=== PATIENT | female | born 2005 ===

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

== ENCOUNTER 2025-05-19 06:49 | Inpatient (IN) | payer OTHER ==
[~2025-05-19] VITALS: Ht 167.6 cm; Wt 89.5 kg
[2025-05-19] VITALS (26 sets, daily range): BP systolic 82–161; BP diastolic 43–108
[2025-05-19] MEDS ORDERED: FentaNYL Citrate 50 MCG/ML 2 ML Injection IV PRN (07:40)
[2025-05-19] MEDS ORDERED: Ondansetron HCl 2 MG / ML 2ML Vial IV PRN ×2 (07:40→17:30)
[2025-05-19] MEDS ORDERED: FentaNYL 2mcg/ml-Bup 0.1% Epd 250 ML EPI PRN (07:40)
[2025-05-19] MEDS ORDERED: OXYTOCIN/RINGER'S LACTATE 500 ML IV SCH (07:40)
[2025-05-19] MEDS ORDERED: Oxytocin 10 Unit / ML Vial IM PRN (07:40)
[2025-05-19] MEDS ORDERED: ePHEDrine Sulfate 50 MG/ML 1ML Injection XX PRN (07:40)
[2025-05-19] MEDS ORDERED: OXYTOCIN/RINGER'S LACTATE 500 ML IV PRN (07:40)
[2025-05-19] MEDS ORDERED: Methylergonovine Maleate 0.2MG / ML 1ML Amp IM PRN (07:40)
[2025-05-19] MEDS ORDERED: Tranexamic Acid 100 ML IV SCH (07:40)
[2025-05-19] MEDS ORDERED: Carboprost Tromethamine 250 MCG/ML 1ML Amp IM PRN (07:40)
[2025-05-19] MEDS ORDERED: PRENATAL TABLE1 EAC2 PO (07:58)
[2025-05-19 08:11] LABS: BASOPHILS ABSOLUTE AUTO 0.04 K/mm3 (0.00-0.23); BASOPHILS PERCENT AUTO 0 % (0-2); EOSINOPHILS ABSOLUTE AUTO 0.13 K/mm3 (0.00-0.68); EOSINOPHILS PERCENT AUTO 1 % (0-6); Hematocrit 25.7 % (33.0-51.0); Hemoglobin 7.9 g/dL (11.5-16.0); IMMATURE GRAN ABSOLUTE AUTO 0.17 K/mm3 (0.00-0.10); IMMATURE GRAN PERCENT AUTO 1 % (0-1); LYMPHOCYTES ABSOLUTE AUTO 2.09 K/mm3 (0.84-5.20); LYMPHOCYTES PERCENT AUTO 17 % (21-46); MONOCYTES ABSOLUTE AUTO 0.99 K/mm3 (0.16-1.47); MONOCYTES PERCENT AUTO 8 % (4-13); Mean Corpuscular HGB Conc 30.7 g/dL (31.5-36.5); Mean Corpuscular Volume 75 fL (80-100); NEUTROPHILS ABSOLUTE AUTO 8.79 K/mm3 (1.96-9.15); NEUTROPHILS PERCENT AUTO 72 % (41-73); NRBC ABSOLUTE 0.00 K/mm3 (0.00-0.02); NRBC Auto 0.0 /100 WBC (0.0-0.2); Platelet Count 211 K/mm3 (150-400); RDW Coefficient Variation 17.2 % (11.7-14.2); RDW Standard Deviation 46.2 fL (35.1-46.3)
[2025-05-19] MEDS ORDERED: Methylergonovine Maleate 0.2MG / ML 1ML Amp IM ONE (13:03)
[2025-05-19] MEDS ORDERED: Naloxone HCl 0.4MG / ML 1ML Vial IV PRN (17:30)
[2025-05-19] MEDS ORDERED: Metoclopramide HCl 5MG / ML 2ML Vial IV PRN (17:30)
[2025-05-19] MEDS ORDERED: DiphenhydrAMINE HCl 50 MG/ML 1ML Vial IV PRN (17:30)
[2025-05-19] MEDS ORDERED: ePHEDrine Sulfate 50 MG/ML 1ML Injection IV PRN (17:35)
[2025-05-20] VITALS (22 sets, daily range): BP systolic 93–135; BP diastolic 52–97
[2025-05-20] MEDS ORDERED: Benzocaine Topical Anesthetic Spray 60GM TOP PRN (06:30)
[2025-05-20] MEDS ORDERED: Witch Hazel/Glycerin PADS TOP PRN (06:30)
[2025-05-20] MEDS ORDERED: Methylergonovine Maleate 0.2MG / ML 1ML Amp IM PRN (06:30)
[2025-05-20] MEDS ORDERED: OXYTOCIN/RINGER'S LACTATE 500 ML IV SCH (06:30)
[2025-05-20] MEDS ORDERED: Ketorolac Tromethamine 30mg Vial IV SCH (08:01)
[2025-05-20] MEDS ORDERED: Prenatal Vit/FE Fumarate/FA 1 Tab PO SCH (09:00)
[2025-05-21] VITALS (17 sets, daily range): BP systolic 105–132; BP diastolic 56–78
[2025-05-21 06:05] LABS: BASOPHILS ABSOLUTE AUTO 0.04 K/mm3 (0.00-0.23); BASOPHILS PERCENT AUTO 0 % (0-2); EOSINOPHILS ABSOLUTE AUTO 0.16 K/mm3 (0.00-0.68); EOSINOPHILS PERCENT AUTO 1 % (0-6); Hematocrit 20.7 % (33.0-51.0); Hemoglobin 6.4 g/dL (11.5-16.0); IMMATURE GRAN ABSOLUTE AUTO 0.31 K/mm3 (0.00-0.10); IMMATURE GRAN PERCENT AUTO 2 % (0-1); LYMPHOCYTES ABSOLUTE AUTO 2.84 K/mm3 (0.84-5.20); LYMPHOCYTES PERCENT AUTO 16 % (21-46); MONOCYTES ABSOLUTE AUTO 1.40 K/mm3 (0.16-1.47); MONOCYTES PERCENT AUTO 8 % (4-13); Mean Corpuscular HGB Conc 30.9 g/dL (31.5-36.5); Mean Corpuscular Volume 76 fL (80-100); NEUTROPHILS ABSOLUTE AUTO 12.73 K/mm3 (1.96-9.15); NEUTROPHILS PERCENT AUTO 73 % (41-73); NRBC ABSOLUTE 0.02 K/mm3 (0.00-0.02); NRBC Auto 0.1 /100 WBC (0.0-0.2); Platelet Count 208 K/mm3 (150-400); RDW Coefficient Variation 17.4 % (11.7-14.2); RDW Standard Deviation 46.5 fL (35.1-46.3)
--- NOTE | 2025-05-21 06:39 | NUR ---
CALL TO DR MCCARTHY @ 5321 TO REPORT H&H, PT HAS BEEN ACTIVE & AMBULATING IN ROOM, ASYMPTOMATIC, V/S, PREVIOUS LAB RESULTS, ORDERS TO OFFER BLOOD TRANSFUSION AND IF DECLINES ORDER PO IRON, ORDERS READ BACK & VERIFIED. DISCUSSED POC W/PT INCLUDING RISKS & BENEFITS OF BLOOD TRANSFUSION. PT DECLINED BLOOD, PO IRON ORDERED. EDUCATED PT ON IMPORTANCE OF MEDICATION COMPLIANCE & DIETARY SOURCES OF IRON, S/S TO REPORT, WHEN TO CALL PROVIDER. PT STATES UNDERSTANDING AND DENIES QUESTIONS OR CONCERN
[2025-05-21] MEDS ORDERED: NS 100 ML IV ONE (09:48)
[2025-05-21] MEDS ORDERED: NS 100 ML IV SCH (09:50)
== END 2025-05-21 14:40 | disposition home or self-care (01) | DRG 807 ==
LOC: BC 06:49 → OBS 06:49 → BC 07:08 → OBS 07:08 → BC 20:36
PROVIDERS: ADMIT Obstetrics & Gynecology
PROC: 00HU33Z Insertion of Infusion Device into Spinal Canal, Percutaneous Approach (ICD-10-PCS; principal; 2025-05-20)
PROC: 30233N1 Transfusion of Nonautologous Red Blood Cells into Peripheral Vein, Percutaneous Approach (ICD-10-PCS; principal; 2025-05-20)
PROC: 10E0XZZ Delivery of Products of Conception, External Approach (ICD-10-PCS; principal; 2025-05-20)
PROC: 3E0R3BZ Introduction of Anesthetic Agent into Spinal Canal, Percutaneous Approach (ICD-10-PCS; principal; 2025-05-20)
PROC: 0KQM0ZZ Repair Perineum Muscle, Open Approach (ICD-10-PCS; principal; 2025-05-20)
DX: O99.334 Smoking (tobacco) complicating childbirth (principal); Z37.0 Single live birth; F17.290 Nicotine dependence, other tobacco product, uncomplicated; O70.1 Second degree perineal laceration during delivery; O90.81 Anemia of the puerperium; D50.9 Iron deficiency anemia, unspecified; Z3A.39 39 weeks gestation of pregnancy
CPT/HCPCS: 36415; 36430; 51702; 85025; 86850; 86900; 86901; 86923; A9270; J1885; J2210; J2405; J2590; J7120; P9016